=== PATIENT | male | born 1975 | race Caucasian/White ===

== ENCOUNTER 2021-02-02 17:16 | Inpatient (IN) | payer OTHER ==
[2021-02-02 19:27] VITALS: BMI 29.3
[2021-02-02] MEDS ORDERED: NICOTINE POLACRILEX 2 MG GUM BUC PRN (20:33)
[2021-02-02] MEDS ORDERED: IBUPROFEN 400 MG TABLET (FP) PO PRN (20:33)
[2021-02-02] MEDS ORDERED: METHADONE HCL 10 MG TABLET (FOR DETOX USE ONLY) PO ONE (20:33)
[2021-02-02] MEDS ORDERED: BISMUTH SUBSALICYLATE 524 MG/30 ML UD PO PRN (20:33)
[2021-02-02] MEDS ORDERED: ONDANSETRON *ODT* 4 MG TABLET SL PRN (20:33)
[2021-02-02] MEDS ORDERED: ACETAMINOPHEN 325 MG TABLET (FP) PO PRN ×2 (20:33)
[2021-02-02] MEDS ORDERED: MAG HYDROX/AL HYDROX/SIMETH 30 ML UNIT-DOSE CUP PO PRN (20:33)
[2021-02-02] MEDS ORDERED: MAGNESIUM HYDROX 2400MG/30ML ORAL SUSPENSION 30 ML CUP PO PRN (20:33)
[2021-02-02] MEDS ORDERED: METHOCARBAMOL 500 MG TABLET PO PRN (20:33)
[2021-02-02] MEDS ORDERED: MENTHOL/PHENOL 1 EACH UD MM PRN (20:33)
[2021-02-02] MEDS ORDERED: MAGNESIUM CITRATE 300 ML BOTTLE PO PRN (20:33)
[2021-02-02] MEDS ORDERED: chlordiazePOXIDE HCL 25 MG CAPSULE PO PRN (20:33)
[2021-02-02] MEDS ORDERED: METHADONE (DETOX) 20 MG, METHADONE (DETOX) 5 MG PO ONE (21:12)
[2021-02-02] MEDS ORDERED: cloNIDine HCL 0.1 MG TABLET ONE (22:30)
[2021-02-02] MEDS ORDERED: METHADONE HCL 10 MG TABLET (FOR DETOX USE ONLY) ONE (22:31)
[2021-02-02] MEDS ORDERED: METHADONE HCL 5 MG TABLET (FOR DETOX USE ONLY) ONE (22:32)
[2021-02-02] MEDS ORDERED: chlordiazePOXIDE HCL 25 MG CAPSULE ONE (22:36)
[2021-02-02] MEDS: cloNIDine HCL 0.1 MG TABLET PO PRN (22:37)
[2021-02-02] MEDS: chlordiazePOXIDE HCL 25 MG CAPSULE PO SCH (22:37)
[2021-02-02] MEDS: THIAMINE HCL 100 MG TABLET (FP) PO SCH (22:38)
[2021-02-02] MEDS: MELATONIN 5 MG TABLETS PO SCH (22:38)
[2021-02-03] MEDS: CEPHALEXIN MONOHYDRATE 500 MG CAPSULE (UD) PO SCH ×5 (00:08→23:40)
[2021-02-03] MEDS ORDERED: chlordiazePOXIDE HCL 25 MG CAPSULE ONE (05:44)
[2021-02-03] MEDS ORDERED: cloNIDine HCL 0.1 MG TABLET ONE (05:45)
[2021-02-03] MEDS: cloNIDine HCL 0.1 MG TABLET PO PRN (05:45)
[2021-02-03] MEDS: chlordiazePOXIDE HCL 25 MG CAPSULE PO SCH ×4 (05:45→22:55)
[2021-02-03] MEDS ORDERED: METHADONE (DETOX) 20 MG, METHADONE (DETOX) 5 MG PO ONE (10:00)
[2021-02-03] MEDS ORDERED: METHADONE HCL 5 MG TABLET (FOR DETOX USE ONLY) ONE (10:13)
[2021-02-03] MEDS ORDERED: METHADONE HCL 10 MG TABLET (FOR DETOX USE ONLY) ONE (10:13)
[2021-02-03] MEDS: BACITRACIN 0.9 GM PACKET TP SCH ×2 (10:18→23:40)
[2021-02-03] MEDS: PRENATAL VITAMINS W/ FOLIC ACID TABLET (FP) PO SCH (10:19)
[2021-02-03 10:53] LABS: POTASSIUM 3.8 mmol/L (3.5-5.1)
[2021-02-03 10:56] LABS: HEMATOCRIT 35.6 % (35.4-49); HEMOGLOBIN 12.7 GM/dL (11.7-16.9); MCH 31.6 pg (25.7-33.7); MCHC 35.8 g/dl (32.0-35.9); MEAN CELL VOLUME 88.4 fl (80-96); MEAN PLT VOLUME 6.3 fl (7.5-11.1); PLATELET COUNT 121 K/MM3 (134-434); RBC 4.02 M/mm3 (4.00-5.60); RDW 13.4 % (11.9-15.9); WHITE BLOOD COUNT 4.5 K/mm3 (4.0-10.0)
[2021-02-03 11:00] LABS: ALBUMIN 3.6 g/dl (3.4-5.0); CALCIUM 9.3 mg/dL (8.5-10.1)
[2021-02-03 11:01] LABS: BLOOD UREA NITROGEN 9.1 mg/dL (7-18)
[2021-02-03 11:04] LABS: CREATININE 0.8 mg/dL (0.55-1.3)
[2021-02-03 11:05] LABS: TOT PROT 7.7 g/dl (6.4-8.2)
[2021-02-03] MEDS: THIAMINE HCL 100 MG TABLET (FP) PO SCH (22:55)
[2021-02-03] MEDS: MELATONIN 5 MG TABLETS PO SCH (22:55)
[2021-02-04] MEDS: CEPHALEXIN MONOHYDRATE 500 MG CAPSULE (UD) PO SCH ×3 (06:00→17:57)
[2021-02-04] MEDS: chlordiazePOXIDE HCL 25 MG CAPSULE PO SCH ×4 (06:00→22:22)
[2021-02-04] MEDS ORDERED: METHADONE HCL 10 MG TABLET (FOR DETOX USE ONLY) PO ONE (10:00)
[2021-02-04] MEDS: PRENATAL VITAMINS W/ FOLIC ACID TABLET (FP) PO SCH (10:05)
[2021-02-04] MEDS: BACITRACIN 0.9 GM PACKET TP SCH ×2 (10:09→22:22)
[2021-02-04] MEDS: MELATONIN 5 MG TABLETS PO SCH (22:22)
[2021-02-04] MEDS: THIAMINE HCL 100 MG TABLET (FP) PO SCH (22:22)
[2021-02-05] MEDS ORDERED: chlordiazePOXIDE HCL 10 MG CAPSULE PO PRN
[2021-02-05] MEDS: CEPHALEXIN MONOHYDRATE 500 MG CAPSULE (UD) PO SCH ×5 (00:19→23:11)
[2021-02-05] MEDS: chlordiazePOXIDE HCL 10 MG CAPSULE PO SCH ×4 (06:11→22:25)
[2021-02-05] MEDS ORDERED: METHADONE HCL 10 MG TABLET (FOR DETOX USE ONLY) ONE (09:18)
[2021-02-05] MEDS ORDERED: METHADONE HCL 5 MG TABLET (FOR DETOX USE ONLY) ONE (09:18)
[2021-02-05] MEDS ORDERED: METHADONE (DETOX) 10 MG, METHADONE (DETOX) 5 MG PO ONE (10:00)
[2021-02-05] MEDS: PRENATAL VITAMINS W/ FOLIC ACID TABLET (FP) PO SCH (10:09)
[2021-02-05] MEDS: BACITRACIN 0.9 GM PACKET TP SCH ×2 (10:09→22:25)
[2021-02-05] MEDS: amLODIPine BESYLATE 5 MG TABLET (FP) PO SCH (11:54)
[2021-02-05] MEDS: THIAMINE HCL 100 MG TABLET (FP) PO SCH (22:25)
[2021-02-05] MEDS: MELATONIN 5 MG TABLETS PO SCH (22:25)
[2021-02-06] MEDS: chlordiazePOXIDE HCL 10 MG CAPSULE PO SCH ×2 (07:11→17:16)
[2021-02-06] MEDS: CEPHALEXIN MONOHYDRATE 500 MG CAPSULE (UD) PO SCH ×3 (07:12→17:16)
[2021-02-06] MEDS ORDERED: METHADONE HCL 10 MG TABLET (FOR DETOX USE ONLY) PO ONE (10:00)
[2021-02-06] MEDS: amLODIPine BESYLATE 5 MG TABLET (FP) PO SCH (10:20)
[2021-02-06] MEDS: PRENATAL VITAMINS W/ FOLIC ACID TABLET (FP) PO SCH (10:22)
[2021-02-06] MEDS: BACITRACIN 0.9 GM PACKET TP SCH ×2 (10:23→22:35)
[2021-02-06] MEDS: THIAMINE HCL 100 MG TABLET (FP) PO SCH (22:33)
[2021-02-06] MEDS: MELATONIN 5 MG TABLETS PO SCH (22:33)
[2021-02-07] MEDS: CEPHALEXIN MONOHYDRATE 500 MG CAPSULE (UD) PO SCH ×3 (00:20→11:26)
[2021-02-07] MEDS ORDERED: chlordiazePOXIDE HCL 10 MG CAPSULE PO ONE (05:00)
[2021-02-07] MEDS ORDERED: amLODIPine BESYLATE 10 MG TABLET (FP) PO SCH (05:00)
[2021-02-07] MEDS ORDERED: METHADONE HCL 5 MG TABLET (FOR DETOX USE ONLY) PO ONE (06:00)
[2021-02-07] MEDS: PRENATAL VITAMINS W/ FOLIC ACID TABLET (FP) PO SCH (11:26)
[2021-02-07] MEDS: BACITRACIN 0.9 GM PACKET TP SCH (11:26)
[2021-02-07 13:18] VITALS: BP 153/89; PULSE 81; TEMP 98.1
== END 2021-02-07 14:18 | disposition other institution (70) | DRG 773 ==
LOC: YASAS 17:16 → Y6N 02-03 08:42
PROVIDERS: ADMIT Allergy & Immunology; ATTEND Allergy & Immunology
PROC: HZ2ZZZZ Detoxification Services for Substance Abuse Treatment (ICD-10-PCS; principal; 2021-02-03)
DX: F11.23 Opioid dependence with withdrawal (principal); F10.230 Alcohol dependence with withdrawal, uncomplicated; F14.20 Cocaine dependence, uncomplicated; F41.8 Other specified anxiety disorders; I10 Essential (primary) hypertension; L03.113 Cellulitis of right upper limb; Z87.891 Personal history of nicotine dependence; Z87.442 Personal history of urinary calculi; Z86.79 Personal history of other diseases of the circulatory system; Z86.19 Personal history of other infectious and parasitic diseases
CPT/HCPCS: 36415; 80053; 85027; 86780; 93005; 93010; C9803; J0735; U0003; U0005

== ENCOUNTER 2021-02-07 14:45 | Inpatient (IN) | payer OTHER ==
[2021-02-07] MEDS ORDERED: NICOTINE POLACRILEX 2 MG GUM BUC PRN (15:21)
[2021-02-07] MEDS ORDERED: ACETAMINOPHEN 325 MG TABLET (FP) PO PRN (15:21)
[2021-02-07] MEDS ORDERED: MENTHOL/PHENOL 1 EACH UD MM PRN (15:21)
[2021-02-07] MEDS ORDERED: LOPERAMIDE HCL 2 MG CAPSULE PO PRN (15:21)
[2021-02-07] MEDS ORDERED: guaiFENesin 200 MG/10 ML 10 ML UNIT-DOSE CUPS PO PRN (15:21)
[2021-02-07] MEDS ORDERED: MAGNESIUM HYDROX 2400MG/30ML ORAL SUSPENSION 30 ML CUP PO PRN (15:21)
[2021-02-07] MEDS ORDERED: P-EPHED 60MG/TRIPROLIDI 2.5MG TABLET PO PRN (15:21)
[2021-02-07] MEDS ORDERED: MAGNESIUM CITRATE 300 ML BOTTLE PO PRN (15:21)
[2021-02-07] MEDS: THIAMINE HCL 100 MG TABLET (FP) PO SCH (21:22)
[2021-02-07] MEDS: MELATONIN 5 MG TABLETS PO SCH (21:22)
[2021-02-07] MEDS: BACITRACIN 0.9 GM PACKET TP SCH (21:33)
[2021-02-08] MEDS: BACITRACIN 0.9 GM PACKET TP SCH ×2 (09:40→21:52)
[2021-02-08] MEDS: PRENATAL VITAMINS W/ FOLIC ACID TABLET (FP) PO SCH (09:40)
[2021-02-08] MEDS: NICOTINE 7 MG/24 HOURS TOPICAL PATCH TD SCH (09:41)
[2021-02-08] MEDS ORDERED: amLODIPine BESYLATE 5 MG TABLET (FP) PO SCH (10:00)
[2021-02-08] MEDS: THIAMINE HCL 100 MG TABLET (FP) PO SCH (21:52)
[2021-02-08] MEDS: MELATONIN 5 MG TABLETS PO SCH (21:52)
[2021-02-08] MEDS: hydrOXYzine PAMOATE 25 MG CAPSULE (FP) PO PRN (21:52)
[2021-02-09] MEDS: amLODIPine BESYLATE 10 MG TABLET (FP) PO SCH (10:39)
[2021-02-09] MEDS: PRENATAL VITAMINS W/ FOLIC ACID TABLET (FP) PO SCH (10:39)
[2021-02-09] MEDS: NICOTINE 7 MG/24 HOURS TOPICAL PATCH TD SCH (10:39)
[2021-02-09] MEDS: hydrOXYzine PAMOATE 25 MG CAPSULE (FP) PO PRN ×2 (10:39→21:10)
[2021-02-09] MEDS: BACITRACIN 0.9 GM PACKET TP SCH ×2 (10:40→21:09)
[2021-02-09] MEDS: MELATONIN 5 MG TABLETS PO SCH (21:09)
[2021-02-09] MEDS: THIAMINE HCL 100 MG TABLET (FP) PO SCH (21:09)
[2021-02-10] MEDS: amLODIPine BESYLATE 10 MG TABLET (FP) PO SCH (09:43)
[2021-02-10] MEDS: BACITRACIN 0.9 GM PACKET TP SCH ×2 (09:43→21:24)
[2021-02-10] MEDS: PRENATAL VITAMINS W/ FOLIC ACID TABLET (FP) PO SCH (09:43)
[2021-02-10] MEDS: hydrOXYzine PAMOATE 25 MG CAPSULE (FP) PO PRN ×2 (09:44→21:23)
[2021-02-10] MEDS: NICOTINE 7 MG/24 HOURS TOPICAL PATCH TD SCH (09:44)
[2021-02-10] MEDS: THIAMINE HCL 100 MG TABLET (FP) PO SCH (21:22)
[2021-02-10] MEDS: MELATONIN 5 MG TABLETS PO SCH (21:23)
[2021-02-11] MEDS: hydrOXYzine PAMOATE 25 MG CAPSULE (FP) PO PRN ×3 (06:21→21:24)
[2021-02-11] MEDS: NICOTINE 7 MG/24 HOURS TOPICAL PATCH TD SCH (10:24)
[2021-02-11] MEDS: BACITRACIN 0.9 GM PACKET TP SCH ×2 (10:24→21:23)
[2021-02-11] MEDS: PRENATAL VITAMINS W/ FOLIC ACID TABLET (FP) PO SCH (10:24)
[2021-02-11] MEDS: amLODIPine BESYLATE 10 MG TABLET (FP) PO SCH (10:24)
[2021-02-11] MEDS: SERTRALINE HCL 25 MG TABLET (FP) PO SCH (10:24)
[2021-02-11] MEDS: THIAMINE HCL 100 MG TABLET (FP) PO SCH (21:23)
[2021-02-11] MEDS: MELATONIN 5 MG TABLETS PO SCH (21:23)
[2021-02-12] MEDS: hydrOXYzine PAMOATE 25 MG CAPSULE (FP) PO PRN ×3 (06:34→21:26)
[2021-02-12] MEDS: SERTRALINE HCL 25 MG TABLET (FP) PO SCH (10:23)
[2021-02-12] MEDS: amLODIPine BESYLATE 10 MG TABLET (FP) PO SCH (10:23)
[2021-02-12] MEDS: PRENATAL VITAMINS W/ FOLIC ACID TABLET (FP) PO SCH (10:23)
[2021-02-12] MEDS: BACITRACIN 0.9 GM PACKET TP SCH ×2 (10:25→21:27)
[2021-02-12] MEDS: NICOTINE 7 MG/24 HOURS TOPICAL PATCH TD SCH (10:25)
[2021-02-12] MEDS: THIAMINE HCL 100 MG TABLET (FP) PO SCH (21:26)
[2021-02-12] MEDS: MELATONIN 5 MG TABLETS PO SCH (21:26)
[2021-02-13] MEDS: IBUPROFEN 400 MG TABLET (FP) PO PRN (06:31)
[2021-02-13] MEDS: hydrOXYzine PAMOATE 25 MG CAPSULE (FP) PO PRN ×3 (06:31→19:19)
[2021-02-13] MEDS: PRENATAL VITAMINS W/ FOLIC ACID TABLET (FP) PO SCH (10:17)
[2021-02-13] MEDS: NICOTINE 7 MG/24 HOURS TOPICAL PATCH TD SCH (10:18)
[2021-02-13] MEDS: SERTRALINE HCL 25 MG TABLET (FP) PO SCH (10:18)
[2021-02-13] MEDS: BACITRACIN 0.9 GM PACKET TP SCH ×2 (10:18→21:42)
[2021-02-13] MEDS: amLODIPine BESYLATE 10 MG TABLET (FP) PO SCH (10:18)
[2021-02-13] MEDS: MELATONIN 5 MG TABLETS PO SCH (21:42)
[2021-02-13] MEDS: THIAMINE HCL 100 MG TABLET (FP) PO SCH (21:42)
[2021-02-14] MEDS: IBUPROFEN 400 MG TABLET (FP) PO PRN (06:13)
[2021-02-14] MEDS: hydrOXYzine PAMOATE 25 MG CAPSULE (FP) PO PRN ×3 (06:13→21:26)
[2021-02-14] MEDS ORDERED: PT OWN MED DRAWER 7, Y5N ONE (08:15)
[2021-02-14] MEDS: PRENATAL VITAMINS W/ FOLIC ACID TABLET (FP) PO SCH (09:49)
[2021-02-14] MEDS: NICOTINE 7 MG/24 HOURS TOPICAL PATCH TD SCH (09:50)
[2021-02-14] MEDS: BACITRACIN 0.9 GM PACKET TP SCH ×2 (09:50→21:28)
[2021-02-14] MEDS: amLODIPine BESYLATE 10 MG TABLET (FP) PO SCH (09:50)
[2021-02-14] MEDS: SERTRALINE HCL 25 MG TABLET (FP) PO SCH (09:50)
[2021-02-14] MEDS: THIAMINE HCL 100 MG TABLET (FP) PO SCH (21:24)
[2021-02-14] MEDS: MELATONIN 5 MG TABLETS PO SCH (21:24)
[2021-02-15] MEDS: hydrOXYzine PAMOATE 25 MG CAPSULE (FP) PO PRN ×3 (06:36→21:23)
[2021-02-15] MEDS ORDERED: MASKS NR ONE (09:02)
[2021-02-15] MEDS: SERTRALINE HCL 25 MG TABLET (FP) PO SCH (09:52)
[2021-02-15] MEDS: amLODIPine BESYLATE 10 MG TABLET (FP) PO SCH (09:52)
[2021-02-15] MEDS: BACITRACIN 0.9 GM PACKET TP SCH ×2 (09:52→21:24)
[2021-02-15] MEDS: PRENATAL VITAMINS W/ FOLIC ACID TABLET (FP) PO SCH (09:52)
[2021-02-15] MEDS: NICOTINE 7 MG/24 HOURS TOPICAL PATCH TD SCH (09:53)
[2021-02-15] MEDS: THIAMINE HCL 100 MG TABLET (FP) PO SCH (21:22)
[2021-02-15] MEDS: MELATONIN 5 MG TABLETS PO SCH (21:22)
[2021-02-16] MEDS: hydrOXYzine PAMOATE 25 MG CAPSULE (FP) PO PRN ×4 (06:18→21:53)
[2021-02-16] MEDS: PRENATAL VITAMINS W/ FOLIC ACID TABLET (FP) PO SCH (09:47)
[2021-02-16] MEDS: BACITRACIN 0.9 GM PACKET TP SCH ×2 (09:48→21:52)
[2021-02-16] MEDS: NICOTINE 7 MG/24 HOURS TOPICAL PATCH TD SCH (09:48)
[2021-02-16] MEDS: amLODIPine BESYLATE 10 MG TABLET (FP) PO SCH (09:48)
[2021-02-16] MEDS: SERTRALINE HCL 25 MG TABLET (FP) PO SCH (09:48)
[2021-02-16] MEDS: MELATONIN 5 MG TABLETS PO SCH (21:52)
[2021-02-16] MEDS: THIAMINE HCL 100 MG TABLET (FP) PO SCH (21:52)
[2021-02-17] MEDS: hydrOXYzine PAMOATE 25 MG CAPSULE (FP) PO PRN ×3 (06:31→21:20)
[2021-02-17] MEDS: IBUPROFEN 400 MG TABLET (FP) PO PRN (06:31)
[2021-02-17] MEDS: amLODIPine BESYLATE 10 MG TABLET (FP) PO SCH (09:56)
[2021-02-17] MEDS: SERTRALINE HCL 25 MG TABLET (FP) PO SCH (09:56)
[2021-02-17] MEDS: BACITRACIN 0.9 GM PACKET TP SCH ×2 (09:56→21:20)
[2021-02-17] MEDS: NICOTINE 7 MG/24 HOURS TOPICAL PATCH TD SCH (09:56)
[2021-02-17] MEDS: PRENATAL VITAMINS W/ FOLIC ACID TABLET (FP) PO SCH (09:56)
[2021-02-17] MEDS ORDERED: BUPRENORPHINE/NALOXONE 2 MG/0.5 MG FILM PACKET SL ONE (13:15)
[2021-02-17] MEDS: THIAMINE HCL 100 MG TABLET (FP) PO SCH (21:18)
[2021-02-17] MEDS: MELATONIN 5 MG TABLETS PO SCH (21:18)
[2021-02-18] MEDS: MAG HYDROX/AL HYDROX/SIMETH 30 ML UNIT-DOSE CUP PO PRN ×2 (02:41→11:43)
[2021-02-18] MEDS: BUPRENORPHINE/NALOXONE 2 MG/0.5 MG FILM PACKET SL SCH (11:44)
[2021-02-18] MEDS: PRENATAL VITAMINS W/ FOLIC ACID TABLET (FP) PO SCH (11:53)
[2021-02-18] MEDS: BACITRACIN 0.9 GM PACKET TP SCH ×2 (11:53→21:27)
[2021-02-18] MEDS: NICOTINE 7 MG/24 HOURS TOPICAL PATCH TD SCH (11:53)
[2021-02-18] MEDS: amLODIPine BESYLATE 10 MG TABLET (FP) PO SCH (11:53)
[2021-02-18] MEDS: SERTRALINE HCL 25 MG TABLET (FP) PO SCH (11:55)
[2021-02-18] MEDS ORDERED: PT OWN MED DRAWER 7, Y5N ONE (11:55)
[2021-02-18] MEDS: THIAMINE HCL 100 MG TABLET (FP) PO SCH (21:26)
[2021-02-18] MEDS: MELATONIN 5 MG TABLETS PO SCH (21:26)
[2021-02-18] MEDS: hydrOXYzine PAMOATE 25 MG CAPSULE (FP) PO PRN (21:27)
[2021-02-19] MEDS: SERTRALINE HCL 25 MG TABLET (FP) PO SCH (09:31)
[2021-02-19] MEDS: NICOTINE 7 MG/24 HOURS TOPICAL PATCH TD SCH (09:31)
[2021-02-19] MEDS: PRENATAL VITAMINS W/ FOLIC ACID TABLET (FP) PO SCH (09:31)
[2021-02-19] MEDS: amLODIPine BESYLATE 10 MG TABLET (FP) PO SCH (09:31)
[2021-02-19] MEDS: BACITRACIN 0.9 GM PACKET TP SCH ×2 (09:31→21:18)
[2021-02-19] MEDS: BUPRENORPHINE/NALOXONE 2 MG/0.5 MG FILM PACKET SL SCH (09:31)
[2021-02-19] MEDS: hydrOXYzine PAMOATE 25 MG CAPSULE (FP) PO PRN ×2 (09:32→21:17)
[2021-02-19] MEDS: MELATONIN 5 MG TABLETS PO SCH (21:18)
[2021-02-19] MEDS: THIAMINE HCL 100 MG TABLET (FP) PO SCH (21:18)
[2021-02-20] MEDS: amLODIPine BESYLATE 10 MG TABLET (FP) PO SCH (09:49)
[2021-02-20] MEDS: BUPRENORPHINE/NALOXONE 2 MG/0.5 MG FILM PACKET SL SCH (09:49)
[2021-02-20] MEDS: hydrOXYzine PAMOATE 25 MG CAPSULE (FP) PO PRN ×2 (09:49→21:38)
[2021-02-20] MEDS: SERTRALINE HCL 25 MG TABLET (FP) PO SCH (09:49)
[2021-02-20] MEDS: NICOTINE 7 MG/24 HOURS TOPICAL PATCH TD SCH (09:50)
[2021-02-20] MEDS: BACITRACIN 0.9 GM PACKET TP SCH ×2 (09:50→21:38)
[2021-02-20] MEDS: PRENATAL VITAMINS W/ FOLIC ACID TABLET (FP) PO SCH (09:50)
[2021-02-20] MEDS: MELATONIN 5 MG TABLETS PO SCH (21:37)
[2021-02-20] MEDS: THIAMINE HCL 100 MG TABLET (FP) PO SCH (21:37)
[2021-02-21] MEDS: BACITRACIN 0.9 GM PACKET TP SCH ×2 (09:53→21:39)
[2021-02-21] MEDS: BUPRENORPHINE/NALOXONE 2 MG/0.5 MG FILM PACKET SL SCH (09:53)
[2021-02-21] MEDS: PRENATAL VITAMINS W/ FOLIC ACID TABLET (FP) PO SCH (09:53)
[2021-02-21] MEDS: amLODIPine BESYLATE 10 MG TABLET (FP) PO SCH (09:53)
[2021-02-21] MEDS: SERTRALINE HCL 25 MG TABLET (FP) PO SCH (09:53)
[2021-02-21] MEDS: hydrOXYzine PAMOATE 25 MG CAPSULE (FP) PO PRN ×3 (09:53→21:38)
[2021-02-21] MEDS: NICOTINE 7 MG/24 HOURS TOPICAL PATCH TD SCH (09:54)
[2021-02-21] MEDS: THIAMINE HCL 100 MG TABLET (FP) PO SCH (21:38)
[2021-02-21] MEDS: MELATONIN 5 MG TABLETS PO SCH (21:38)
[2021-02-22 06:48] VITALS: TEMP 97.3
[2021-02-22] MEDS ORDERED: PT OWN MED DRAWER 7, Y5N ONE (08:09)
[2021-02-22] MEDS: PRENATAL VITAMINS W/ FOLIC ACID TABLET (FP) PO SCH (09:00)
[2021-02-22] MEDS: BUPRENORPHINE/NALOXONE 2 MG/0.5 MG FILM PACKET SL SCH (09:01)
[2021-02-22] MEDS: SERTRALINE HCL 25 MG TABLET (FP) PO SCH (09:01)
[2021-02-22] MEDS: amLODIPine BESYLATE 10 MG TABLET (FP) PO SCH (09:01)
[2021-02-22] MEDS: BACITRACIN 0.9 GM PACKET TP SCH (09:01)
[2021-02-22] MEDS: NICOTINE 7 MG/24 HOURS TOPICAL PATCH TD SCH (09:01)
[2021-02-22] MEDS: hydrOXYzine PAMOATE 25 MG CAPSULE (FP) PO PRN (09:02)
[2021-02-22] MEDS: MAG HYDROX/AL HYDROX/SIMETH 30 ML UNIT-DOSE CUP PO PRN (09:18)
[2021-02-22 10:36] VITALS: BP 125/72; PULSE 84
== END 2021-02-22 09:25 | disposition home or self-care (01) | DRG 772 ==
LOC: YASAS 14:45 → Y5N 14:47
PROVIDERS: ADMIT Allergy & Immunology; ATTEND Allergy & Immunology
PROC: HZ42ZZZ Group Counseling for Substance Abuse Treatment, Cognitive-Behavioral (ICD-10-PCS; principal; 2021-02-07)
DX: F10.20 Alcohol dependence, uncomplicated (principal); F11.20 Opioid dependence, uncomplicated; F14.20 Cocaine dependence, uncomplicated; F13.20 Sedative, hypnotic or anxiolytic dependence, uncomplicated; F19.24 Other psychoactive substance dependence with psychoactive substance-induced mood disorder; I10 Essential (primary) hypertension; Z86.19 Personal history of other infectious and parasitic diseases; Z86.79 Personal history of other diseases of the circulatory system; Z87.442 Personal history of urinary calculi; Z51.81 Encounter for therapeutic drug level monitoring
CPT/HCPCS: C9803; U0003; U0005

== ENCOUNTER 2025-03-18 11:07 | Inpatient (IN) | payer OTHER ==
[2025-03-18 13:19] LABS: ABSOLUTE IMMATURE GRANULOCYTES 0.14 x10^3/uL (0.0-0.031); BASOPHILS # 0.03 x10^3/uL (0.01-0.08); EOSINOPHIL % 0.1 % (0.8-7.0); EOSINOPHILS # 0.01 x10^3/uL (0.04-0.54); HEMATOCRIT 46.9 % (40.1-51.0); MCHC 34.1 g/dl (32.3-36.5); MEAN CELL VOLUME 89.3 fl (79.0-92.2); MEAN PLT VOLUME 9.1 fl (9.4-12.4); MONOCYTE # 0.78 x10^3/uL (0.30-0.82); MONOCYTE % 3.9 % (5.3-12.2); PLATELET COUNT 184 x10^3/uL (163-337); RDW 13.8 % (12.1-15.9)
[2025-03-18] MEDS: SODIUM CHLORIDE 0.9% 500 ML INFUS.BAG IV ONE (13:23)
[2025-03-18 13:50] LABS: POTASSIUM 4.7 mmol/L (3.5-5.1)
[2025-03-18 13:53] LABS: ALBUMIN 3.9 g/dl (3.4-5.0); CALCIUM 10.2 mg/dL (8.5-10.1)
[2025-03-18 13:58] LABS: BILIRUBIN,TOTAL 1.3 mg/dL (0.2-1); TOT PROT 9.4 g/dl (6.4-8.2)
[2025-03-18 14:08] LABS: CREATININE 0.9 mg/dL (0.55-1.3)
[2025-03-18 14:27] LABS: VENOUS BASE EXCESS 1.5 mmol/L (-2-2); VENOUS O2 SATURATION 81.1 % (70-80); VENOUS PCO2 34.8 mmHg (38-52); VENOUS PH 7.467 (7.310-7.410)
[2025-03-18 15:13] LABS: URINE APPEARANCE CLEAR; URINE BILIRUBIN NEGATIVE (NEGATIVE); URINE COLOR YELLOW; URINE GLUCOSE (UA) NEGATIVE (NEGATIVE); URINE KETONE NEGATIVE (NEGATIVE); URINE LEUK ESTERASE NEGATIVE (NEGATIVE); URINE NITRITE NEGATIVE (NEGATIVE); URINE PROTEIN NEGATIVE (NEGATIVE)
[2025-03-18 15:34] LABS: METHADONE, UR NEGATIVE (NEGATIVE); URINE AMPHETAMINES NEGATIVE (NEGATIVE); URINE BARBITURATES NEGATIVE (NEGATIVE)
[2025-03-18 15:36] LABS: COCAINE, UR POSITIVE (NEGATIVE); OPIATES, URI NEGATIVE (NEGATIVE); PHENCYCLIDINE,URINE NEGATIVE (NEGATIVE); URINE BENZODIAZEPINES POSITIVE (NEGATIVE)
[2025-03-18] MEDS: VANCOMYCIN PREMIX 1.75 GM 1,750 MG/350 ML PIGGYBACK IVPB ONE (18:26)
[2025-03-18 23:06] VITALS: BMI 21.6
[2025-03-18] MEDS ORDERED: ONDANSETRON 4 MG/2 ML VIAL IVPUSH PRN (23:30)
[2025-03-19] MEDS: PIPERACILLIN/TAZOB 4.5 GM 4.5 GM in DEXTROSE 5%-WATER 100 ML IVPB ONE (01:11)
[2025-03-19 08:26] LABS: ABSOLUTE IMMATURE GRANULOCYTES 0.05 x10^3/uL (0.0-0.031); BASOPHILS # 0.04 x10^3/uL (0.01-0.08); EOSINOPHIL % 0.4 % (0.8-7.0); EOSINOPHILS # 0.04 x10^3/uL (0.04-0.54); HEMATOCRIT 40.5 % (40.1-51.0); HEMOGLOBIN 13.7 g/dL (13.7-17.5); MCHC 33.8 g/dl (32.3-36.5); MEAN CELL VOLUME 89.8 fl (79.0-92.2); MEAN PLT VOLUME 8.9 fl (9.4-12.4); MONOCYTE # 0.59 x10^3/uL (0.30-0.82); MONOCYTE % 6.1 % (5.3-12.2); PLATELET COUNT 150 x10^3/uL (163-337); RDW 13.5 % (12.1-15.9)
[2025-03-19 08:44] LABS: POTASSIUM 3.8 mmol/L (3.5-5.1)
[2025-03-19 08:45] LABS: CALCIUM 9.5 mg/dL (8.5-10.1)
[2025-03-19 08:46] LABS: ALBUMIN 3.5 g/dl (3.4-5.0); BLOOD UREA NITROGEN 15.8 mg/dL (7-18); MAGNESIUM 1.9 mg/dL (1.8-2.4)
[2025-03-19 08:48] LABS: BILIRUBIN,DIRECT 0.3 mg/dL (0.0-0.2)
[2025-03-19 08:50] LABS: CREATININE 0.9 mg/dL (0.55-1.3); PHOSPHOROUS 3.8 mg/dL (2.5-4.9); TOT PROT 7.9 g/dl (6.4-8.2)
[2025-03-19] MEDS: SERTRALINE HCL 25 MG TABLET (FP) PO SCH (09:51)
[2025-03-19] MEDS: ENOXAPARIN NA (PORCINE) 40 MG/0.4 ML DISP.SYRIN SQ SCH (09:52)
[2025-03-19 16:55] LABS: HIV INTERPRETATION NEGATIVE (NEGATIVE)
[2025-03-19 18:00] LABS: HCV DIAGNOSTIC IN-HOUSE W/RFLX REACTIVE (NONREACTIVE)
[2025-03-20 10:50] VITALS: RESP 18
[2025-03-21 08:30] LABS: ABSOLUTE IMMATURE GRANULOCYTES 0.02 x10^3/uL (0.0-0.031); BASOPHILS # 0.04 x10^3/uL (0.01-0.08); EOSINOPHIL % 1.1 % (0.8-7.0); EOSINOPHILS # 0.07 x10^3/uL (0.04-0.54); HEMATOCRIT 38.1 % (40.1-51.0); HEMOGLOBIN 13.1 g/dL (13.7-17.5); MCHC 34.4 g/dl (32.3-36.5); MEAN CELL VOLUME 89.9 fl (79.0-92.2); MEAN PLT VOLUME 8.9 fl (9.4-12.4); MONOCYTE # 0.44 x10^3/uL (0.30-0.82); MONOCYTE % 7.2 % (5.3-12.2); PLATELET COUNT 159 x10^3/uL (163-337); RDW 13.3 % (12.1-15.9)
[2025-03-21 08:47] LABS: POTASSIUM 4.4 mmol/L (3.5-5.1)
[2025-03-21 08:50] LABS: CALCIUM 9.4 mg/dL (8.5-10.1)
[2025-03-21 08:51] LABS: ALBUMIN 3.5 g/dl (3.4-5.0); BLOOD UREA NITROGEN 25.5 mg/dL (7-18)
[2025-03-21 08:56] LABS: BILIRUBIN,TOTAL 0.7 mg/dL (0.2-1); TOT PROT 7.8 g/dl (6.4-8.2)
[2025-03-22 10:19] LABS: HEMATOCRIT 37.5 % (40.1-51.0); HEMOGLOBIN 12.9 g/dL (13.7-17.5); MCHC 34.4 g/dl (32.3-36.5); MEAN CELL VOLUME 88.7 fl (79.0-92.2); MEAN PLT VOLUME 8.8 fl (9.4-12.4); PLATELET COUNT 166 x10^3/uL (163-337); RDW 13.1 % (12.1-15.9)
[2025-03-22 10:39] LABS: POTASSIUM 3.9 mmol/L (3.5-5.1)
[2025-03-22 10:44] LABS: ALBUMIN 3.5 g/dl (3.4-5.0); CALCIUM 9.5 mg/dL (8.5-10.1)
[2025-03-22 10:45] LABS: BLOOD UREA NITROGEN 18.9 mg/dL (7-18)
[2025-03-22 10:48] LABS: CREATININE 1.1 mg/dL (0.55-1.3)
[2025-03-22 10:49] LABS: TOT PROT 7.9 g/dl (6.4-8.2)
[2025-03-22 10:50] LABS: BILIRUBIN,TOTAL 0.7 mg/dL (0.2-1)
[2025-03-22 14:32] VITALS: BP 115/84; PULSE 78; TEMP 98.6
== END 2025-03-22 17:20 | disposition home or self-care (01) | DRG 111 ==
LOC: JER 11:07 → JERBED 17:15 → OBSVTOIN 20:01 → J7W 22:31
PROVIDERS: ADMIT Student in an Organized Health Care Education/Training Program; ATTEND Physician Assistant
DX: R42 Dizziness and giddiness (principal); F10.20 Alcohol dependence, uncomplicated; I35.1 Nonrheumatic aortic (valve) insufficiency; R11.2 Nausea with vomiting, unspecified; R53.1 Weakness; R74.01 Elevation of levels of liver transaminase levels; E80.6 Other disorders of bilirubin metabolism; D72.829 Elevated white blood cell count, unspecified; K21.9 Gastro-esophageal reflux disease without esophagitis; F41.8 Other specified anxiety disorders; R62.7 Adult failure to thrive; Z68.21 Body mass index [BMI] 21.0-21.9, adult
CPT/HCPCS: 0241U-QW; 36415; 70551-TC; 71045-TC-FY; 80053; 80307; 81003; 82248; 82550; 82803; 82962; 83605; 83735; 84100; 84484; 85025; 85027; 85651; 86140; 86707; 86803; 87040; 87086; 87350; 87389; 87517; 87522; 93005; 93010; 93306-TC; 99285-25; G0378; J3370

== ENCOUNTER 2025-05-07 09:23 | Inpatient (IN) | payer OTHER ==
[2025-05-07 09:36] VITALS: BMI 20.9
[2025-05-07] MEDS ORDERED: BISMUTH SUBSALICYLATE 524 MG/30 ML PO PRN (10:16)
[2025-05-07] MEDS ORDERED: guaiFENesin 600 MG TABLET.ER (FP) PO PRN (10:16)
[2025-05-07] MEDS ORDERED: MAG HYDROX/AL HYDROX/SIMETH 30 ML UNIT-DOSE CUP PO PRN (10:16)
[2025-05-07] MEDS ORDERED: ONDANSETRON *ODT* 4 MG TABLET SL PRN (10:16)
[2025-05-07] MEDS ORDERED: BENZONATATE 200 MG CAPSULE PO PRN (10:16)
[2025-05-07] MEDS ORDERED: MAGNESIUM HYDROX 2400MG/30ML ORAL SUSPENSION 30 ML CUP PO PRN (10:16)
[2025-05-07] MEDS ORDERED: BENZOCAINE/MENTHOL (CHLORASEPTIC ) LOZENGE MM PRN (10:16)
[2025-05-07] MEDS ORDERED: NALOXONE (NARCAN) HCL 4 MG/0.1 ML SPRAY NS PRN (10:16)
[2025-05-07] MEDS ORDERED: DICYCLOMINE HCL 10 MG CAPSULE PO PRN (10:16)
[2025-05-07] MEDS ORDERED: LOPERAMIDE HCL 2 MG CAPSULE PO PRN (10:16)
[2025-05-07] MEDS ORDERED: ACETAMINOPHEN 325 MG TABLET (FP) PO PRN (10:16)
[2025-05-07] MEDS ORDERED: NICOTINE POLACRILEX 2 MG LOZENGE BC PRN (10:16)
[2025-05-07] MEDS ORDERED: POLYETHYLENE GLYCOL (HEALTHYLAX) 3350 17 GM PACKET PO PRN (10:16)
[2025-05-07] MEDS ORDERED: IBUPROFEN 600 MG TABLET (FP) PO PRN (10:16)
[2025-05-07] MEDS ORDERED: NICOTINE POLACRILEX 2 MG GUM BUC PRN (10:16)
[2025-05-07] MEDS ORDERED: IBUPROFEN 400 MG TABLET (FP) PO PRN (10:16)
[2025-05-07] MEDS ORDERED: P-EPHED 60MG/TRIPROLIDI 2.5MG TABLET PO PRN (10:16)
[2025-05-07] MEDS ORDERED: chlordiazePOXIDE HCL 25 MG CAPSULE ONE (12:10)
[2025-05-07] MEDS: BACITRACIN 0.9 GM PACKET TP SCH (12:10)
[2025-05-07] MEDS: chlordiazePOXIDE HCL 25 MG CAPSULE PO SCH (12:12)
[2025-05-07] MEDS: AMOX TR/POT CLAV 875MG/125MG TABLETS (FP) PO SCH (17:14)
[2025-05-07] MEDS: THIAMINE 100 MG TABLET PO SCH (22:07)
[2025-05-07] MEDS: SULFAMETHOXAZOLE/TRIMETHOPRIM 800MG/160MG D.S. TABLET PO SCH (22:07)
[2025-05-07] MEDS: MELATONIN 5 MG TABLETS PO SCH (22:08)
[2025-05-08] MEDS: chlordiazePOXIDE HCL 10 MG CAPSULE PO SCH (06:09)
[2025-05-08] MEDS: PRENATAL VITAMINS W/ FOLIC ACID TABLET (FP) PO SCH (10:07)
[2025-05-08 15:13] LABS: HEMATOCRIT 40.3 % (40.1-51.0); HEMOGLOBIN 13.6 g/dL (13.7-17.5); MCHC 33.7 g/dl (32.3-36.5); MEAN CELL VOLUME 88.8 fl (79.0-92.2); PLATELET COUNT 154 x10^3/uL (163-337); RDW 13.5 % (12.1-15.9)
[2025-05-08 15:19] LABS: POTASSIUM 3.7 mmol/L (3.5-5.1)
[2025-05-08 15:23] LABS: CALCIUM 9.9 mg/dL (8.5-10.1)
[2025-05-08 15:24] LABS: ALBUMIN 3.5 g/dl (3.4-5.0); BLOOD UREA NITROGEN 24.4 mg/dL (7-18)
[2025-05-08 15:25] LABS: CREATININE 0.9 mg/dL (0.55-1.3)
[2025-05-08 15:27] LABS: BILIRUBIN,TOTAL 0.4 mg/dL (0.2-1); TOT PROT 8.3 g/dl (6.4-8.2)
[2025-05-08] MEDS: METHOCARBAMOL 500 MG TABLET PO PRN (22:54)
[2025-05-09] MEDS: chlordiazePOXIDE HCL 10 MG CAPSULE PO SCH (05:40)
[2025-05-09] MEDS: chlordiazePOXIDE HCL 25 MG CAPSULE PO PRN (10:19)
[2025-05-09] MEDS: hydrOXYzine PAMOATE 25 MG CAPSULE (FP) PO PRN (22:42)
[2025-05-10] MEDS: chlordiazePOXIDE HCL 10 MG CAPSULE PO ONE (05:43)
[2025-05-10] MEDS: chlordiazePOXIDE HCL 10 MG CAPSULE PO PRN (10:21)
[2025-05-10 11:54] VITALS: PULSE 78
[2025-05-10 12:45] VITALS: BP 116/83; RESP 14; TEMP 98
== END 2025-05-10 14:20 | disposition other institution (70) | DRG 773 ==
LOC: YASAS 09:23 → Y3N 11:07
PROVIDERS: ADMIT Allergy & Immunology; ATTEND Allergy & Immunology
PROC: HZ2ZZZZ Detoxification Services for Substance Abuse Treatment (ICD-10-PCS; principal; 2025-05-07)
DX: F10.230 Alcohol dependence with withdrawal, uncomplicated (principal); F11.20 Opioid dependence, uncomplicated; F14.20 Cocaine dependence, uncomplicated; F41.9 Anxiety disorder, unspecified; F32.A Depression, unspecified; I10 Essential (primary) hypertension; L98.491 Non-pressure chronic ulcer of skin of other sites limited to breakdown of skin; B18.2 Chronic viral hepatitis C; Z87.891 Personal history of nicotine dependence
CPT/HCPCS: 36415; 80053; 80305; 80307; 85027; 86780; 87811